=== PATIENT | male | born 1985 ===

== ENCOUNTER 2023-08-21 09:38 | Outpatient (AMB) | payer OTHER, SELFPAY ==
--- NOTE | 2023-08-21 09:51 | A.OFFPC_ITS ---
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 Intake Note: New patient visit, asthma [facility] Attendant Required: No Allergies No Known Allergies Allergy (Verified 08/21/23 09:50) Tobacco use date assessed: 08/21/23 Dental Screening Dental Screen Date: 08/21/23 Did you have a dental visit in the last 12 months?: No Did you have a dental problem in the last 6 months where you did not have access to dental care?: No Was dental information given to patient?: Patient declined HPI 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 Dad: [place], CAD, CVA. mGM: Alzheimers. SocHx: Smoked x a couple years in his twenties. EtOH: 1-2 dr a week. 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 1. Little interest or pleasure in doing things: not at all 2. Feeling down, depressed, or hopeless: not at all 3. Trouble falling or staying asleep, or sleeping too much: more than half the days 4. Feeling tired or having little energy: several days 5. Poor appetite or overeating: not at all 6. Feeling bad about yourself - or that you are a failure or have let yourself or your family down: not at all 7. Trouble concentrating on things, such as reading the newspaper or watching television: not at all 8. Moving or speaking so slowly that other people could have noticed. Or the opposite - being so fidgety or restless that you have been moving around a lot more than usual: not at all 9. Thoughts that you would be better off or of hurting yourself in some way: not at all Total score: 3 Depression Screening Interpretation: Negative Depression Screening Done: Yes 35583 - PHQ-9 Billing: Yes Source: Developed by Drs. Jose A Pérez, Caitlyn Hendrix, Haile Zaidi and colleagues, with an educational jannet from [employer]. Thrive Questionnaire Date Thrive assessed: 08/21/23 What is your living situation today?: I have a steady place to live Within the past 12 months, did the food you bought not last and you didn't have the money to get more?: Never true Within the past 12 months, did you worry whether your food would run out before you got money to buy more?: Never true Do you have trouble paying for medicines?: No Do you have trouble getting transportation to medical appointments?: No Do you have trouble paying your heating and electricity bill?: No Do you have trouble taking care of your child, family member or friend?: No Do you have trouble with day-to-day activities such as bathing, preparing meals, shopping, managing finances, etc.?: No Are you currently unemployed and looking for a job?: No Are you interested in more education?: No Please select the resources that you would like help with: None Currently or been in a relationship where the following occur: no concerns reported THRIVE Score: 0 AUDIT C Alcohol Use Questionnaire (AUDIT-C) 1. How often do you have a drink containing alcohol?: 2-3 times a week 2. How many drinks containing alcohol do you have on a typical day when you are drinking?: 1 or 2 3. How often do you have six or more drinks on one occasion?: Never Total Score: 3 CHEN-7 AMB Questionnaire CHEN-7 Date CHEN - 7 assessed: 08/21/23 Feeling nervous, anxious, or on edge: 0 = Not at all Not being able to stop or control worryin = Not at all Worrying too much about different things: 0 = Not at all Trouble relaxin = Not at all Being so restless that it is hard to sit still: 0 = Not at all Becoming easily annoyed or irritable: 0 = Not at all Feeling afraid as if something awful might happen: 0 = Not at all Total CHEN-7 score (0-4 normal; 5-9 mild; 10-14 moderate; 15-21 severe): 0 Source: Developed by Drs. Jose A Pérez, Caitlyn Hendrix, Haile Zaidi and colleagues, with an educational jannet from [employer]. CHEN-7 Assessment Billing CHEN-7 Assessment Tool: CHEN-7 Assessment 81503 ACT Questionnaire In the past 4 weeks, how much of the time did your asthma keep you from getting as much done at work, school or at home?: A little of the time During the past 4 weeks, how often have you had shortness of breath?: 3-6 times a week During the past 4 weeks, how often did your asthma symptoms wake you up at night or earlier than usual in the morning?: Not at all During the past 4 weeks, how often have you had to use your rescue inhaler or nebulizer medication?: Not at all How would you rate your asthma control during the past 4 weeks?: Completely controlled ACT Interpretation: Positive Score: 22 Review of Systems Const Denies chills, Denies fatigue, Denies fever(s), Denies headache(s) and Denies weakness ENT Denies dizziness and Denies headache(s) Card Denies chest pain, Denies lightheadedness, Denies dyspnea and Denies other (Palpitations) Resp Denies cough, Denies dyspnea, Denies wheezing and Denies other ( shortness of breath) Musc Denies numbness and Denies tingling Neuro Denies dizziness, Denies headache(s), Denies numbness, Denies tingling, Denies paresthesias and Denies weakness Psych Denies anxiety and Denies depression Endo Denies fatigue Aller/Immun Denies wheezing Physical exam (Primary Care) Vital Signs: Last Vital Signs Temp 97.9 F 08/21/23 10:05 Pulse 63 08/21/23 10:05 Resp 12 08/21/23 10:05 BP 128/80 08/21/23 10:05 Pulse Ox 98 08/21/23 10:05 Oxygen Delivery Method Room Air 08/21/23 10:05 BMI result Body Mass Index 31.7 Tobacco/Smoking Status: Tobacco use Status Tobacco use date assessed 08/21/23 08/21/23 10:20 Patient Tobacco Use Status Former Tobacco user 08/21/23 10:10 Tobacco use type Cigarette 08/21/23 10:20 e-Cigarette/Vaping Use Never Used 08/21/23 10:10 PHQ-9: PHQ-9 Score PHQ-9: Total score 3 08/21/23 10:32 Depression Screening Interpretation: Negative Thrive Assessment: Date of Thrive Assessment Date Thrive assessed 08/21/23 08/21/23 10:10 Currently or been in a relationship where the following occur: no concerns reported Const General: no acute distress and well developed Nutritional Appearance: well nourished Orientation/consciousness: patient oriented x3 HENMT Head: Yes normocephalic and Yes atraumatic Eyes General: appearance normal, both eyes and all related structures Pupils: Equal, round and reactive pupils present EOM: EOMs intact bilaterally Resp Effort & Inspection: normal respiratory effort Auscultation: clear to auscultation bilaterally Cardio Rate: regular rate Rhythm: regular rhythm Heart sounds: S1 normal heart sound present, S2 normal heart sound present, no gallops, no murmurs and no rubs Neuro General: patient oriented x3 and gait normal Cranial nerves: Yes Equal, round and reactive pupils present Psych Affect: normal affect Office Procedures EKG 35946-[id number], Complete Assessment and Plan Assessment & Plan (1) Shortness of breath: Code(s): R06.02 - Shortness of breath Plan: Shortness?of?breath?with?exercise?as?well?as?sometimes?while?sleeping Had?been?diagnosed?with?exercise-induced?asthma?in?the?past?bu t?he?notes?that?inhalers?never?helped?with?this?or?shortness?of?breath?in?genera l Denies?chest?pain EKG:??Shows?sinus?bradycardia,?normal?axis,?no?hypertrophy,?no?ST-T-wave?changes Will?check?a?chest?x-ray If?workup?is?unrevealing,?he?can?continue?exercise?and?weight?loss. If?still?having?shortness?of?breath,?would?get?PFTs (2) Difficulty sleeping: Code(s): G47.9 - Sleep disorder, unspecified Plan: Patient?awakens?short?of?breath?with?fast?heart?rate Concern?for?sleep?apnea?and?I?am?referring?him?to?Sleep?Medicine (3) Difficulty concentrating: Code(s): R41.840 - Attention and concentration deficit Plan: Patient?notes?history?of?ADHD?but?no?recent?history?of?any?control?medications?f or?this May?be?related?to?difficulty?sleeping?and?or?sleep?apnea (4) Laboratory exam ordered as part of routine general medical examination: Code(s): Z00.00 - Encounter for general adult medical examination without abnormal findi ngs Plan: Check?labs Orders: Orders Lipid Panel Today Z00.00 - Encounter for general adult medical examination without abnormal findings Microalbumin, Random (w Creat) Today I10 - Essential (primary) hypertension AMB EKG-In Office Today R06.02 - Shortness of breath XR chest 2V Today R06.02 - Shortness of breath Comprehensive [place]. Panel Fast Today Z00.00 - Encounter for general adult medical examination without abnormal findings TSH reflex Free T4 Today Z00.00 - Encounter for general adult medical examination without abnormal findings UA and rflx microscopic Today Z00.00 - Encounter for general adult medical examination without abnormal findings Referrals Sleep Medicine Referral G47.30 - Sleep apnea, unspecified Coding Level of Care Code New Pt Level 3 (21198) Diagnoses Shortness of breath R06.02 Difficulty sleeping G47.9 Difficulty concentrating R41.840 Laboratory exam ordered as part of routine general medical examination Z00.00 CPT Codes EKG - CPT: 02128-[id number], Complete ([id number]) Additional Codes CHEN-7 Assessment Billing - CHEN-7 Assessment Tool: CHEN-7 Assessment 89828 ([id number])
[2023-08-21 10:05] VITALS: BP 128/80; PULSE 63; RESP 12; TEMP 36.6; O2SAT 98; BMI 31.7
== END 2023-08-21 11:36 | disposition home or self-care (01) ==
PROVIDERS: PCP Family Medicine; Visit Provider Family Medicine
DX: R06.02 Shortness of breath (principal); G47.9 Sleep disorder, unspecified; R41.840 Attention and concentration deficit; Z00.00 Encounter for general adult medical examination without abnormal findings
CPT/HCPCS: 93000; 99203

== ENCOUNTER 2023-09-17 09:33 | Outpatient (REF) | payer OTHER, SELFPAY ==
[2023-09-17 11:30] LABS: Appearance Urine Clear; Color Urine Yellow; Glucose Urine UA Negative (Negative); Leukocyte Esterase Urine Negative (Negative); Nitrite Urine Negative (Negative); PH 7.5 (5.0-9.0); Urine Blood Negative (Negative); Urine Ketones Negative (Negative); Urine Protein Negative (Neg-Trace)
[2023-09-17 12:13] LABS: Creatinine Urine 169.07 mg/dL; Microalbum/Creatinine Ratio Ur 2.9 ug/mg cr (<30)
[2023-09-17 12:37] LABS: Alanine Aminotransferase 18 U/L (0-40); Albumin Level 4.3 g/dL (3.5-5.0); Alkaline Phosphatase 73 U/L (39-117); Anion Gap 9 (12-20); Aspartate Amino Transferase 19 U/L (5-37); Bilirubin Total 0.5 mg/dL (0.0-1.0); Blood Urea Nitrogen 14 mg/dL (9-16); Calcium 9.2 mg/dL (8.4-10.2); Carbon Dioxide 29 mmol/L (22-29); Chloride 106 mmol/L (96-108); Cholesterol 191 mg/dL (<200); Estimated Glomerular Filt Rate > 60; Glucose Fasting 88 mg/dL (60-99); HDL Cholesterol 42 mg/dL (>40); LDL Cholesterol Calculated 131 mg/dL (<100); Potassium 4.3 mmol/L (3.3-5.1); Sodium 140 mmol/L (135-145); Total Protein 7.6 g/dL (6.5-8.0); Triglycerides 92 mg/dL (<150)
[2023-09-17 12:40] LABS: TSH reflex Free T4 1.25 uIU/mL (0.32-4.0)
== END 2023-09-17 09:34 | disposition home or self-care (01) ==
LOC: HO.WFDLDS 09:33
PROVIDERS: Visit Provider Family Medicine
DX: Z00.00 Encounter for general adult medical examination without abnormal findings (principal); I10 Essential (primary) hypertension
CPT/HCPCS: 36415; 80053; 80061; 81003; 82043; 82570; 84443

== ENCOUNTER 2025-05-12 11:58 | Outpatient (AMB) | payer OTHER, SELFPAY ==
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
[2025-05-12 12:07] VITALS: BP 150/104; PULSE 78; RESP 16; TEMP 36.3; O2SAT 100; BMI 31.4
--- OUTSIDE RECORDS SUMMARY | 2025-05-12 15:53 | XMS_ITS ---
Author Name [facility] Organization Unknown Care Team Organization Name Specialty Phone Email Start Date End Da te [facility] 04/03/2022 01/13/2024
--- OUTSIDE RECORDS SUMMARY | 2025-05-12 15:53 | XMS_ITS | Clinical Summary ---
Author Organization [facility] Address [address] [address] Phone Care Team Providers Care Coiler Operator Name Role Phone Pcp, Unknown Primary Care Provider Unavailabl e Allergies No known active allergies Medications No known medications Immunizations Immunization Administration Dates Next Due INFLUENZA, SPLIT VIRUS, TRIVALENT W/ PRESERVATIV E IM 04/18/2015,07/11/2012 Pneumococcal polysaccharide PPSV23 04/18/2015 Tdap 11/19/2011 Social History Tobacco Use Types Packs/Day Years Used Date Smoking Tobacco: Never Smokeless Tobacco: Never Education Answer Date Recorded Are you interested in more education? Not on earnestine e 11/29/2023 Are you concerned about learning? Not on file 11/29/2023 No 11/29/2023 No 11/29/2023 Digital Access Answer Date Recorded No 11/29/2023 No 11/29/2023 Reliable internet access at home? Not on file 11/29/2023 Device with a working camera? Not on file Sex and Gender Information Value Date Recorded Sex Assigned at Not on file Legal Sex Male 10:56 AM EDT Gender Identity Not on file Sexual Orientation Not on file Last Filed Vital Signs Vital Sign Reading Time Taken Comments Blood Pressure 136/90 11/29/2023 11:23 AM EDT Pulse 63 11/29/2023 11:23 AM EDT Temperature 36.6 C (97.9 F) 11/29/2023 11:23 AM EDT Respiratory Rate 18 11/29/2023 11:23 AM EDT Oxygen Saturation 100% 11/29/2023 11:23 AM EDT Inhaled Oxygen Concentration - - Weight 97.1 kg (214 lb) 11/29/2023 11:23 AM EDT Height - - Body Mass Index - - Plan of Treatment Health Maintenance Due Date Last Done Comments LIPID PANEL 1985 DEPRESSION SCREENING 1997 HEPATITIS C SCREENING 12/07/2003 HIV ONE-TIME SCREENING (18-6 5 YEARS) 12/07/2003 Adult Td,Tdap Booster 11/18/2021 11/19/2011 INFLUENZA VACCINE (#1) 2024 5, 07/11/2012 COVID-19 VACCINE ( - 2024-2 6 season) 2025 PNEUMOCOCCAL VACCINES (0-49 years) Aged Out 04/18/2015 No longer eligible b ased on patient's age to complete this topic SMOKING STATUS SCREENING (On ce After 26 Yrs) Completed 11/29/2023 HEPATITIS A VACCINES Aged Out No long er eligible based on patient's age to complete this topic HIB VACCINES Aged Out No longer eligi ble based on patient's age to complete this topic MENINGOCOCCAL VACCINES (ACWY) Aged Out No longer eligible based on patient's age to complete this topic MENINGOCOCCAL VACCINES (B) Aged Out N o longer eligible based on patient's age to complete this topic Medical Devices Not on file Insurance [place] [address] [place], [place] [id number] [place], [place] [address]O [facility] [place] [place] [address] HMO Care Teams Coiler Operator Relationship Specialty Start Date End Date Pcp, Unknown PCP - General 11/29/23 Additional Source Comments The information contained in this document represents components of the legal health record. It is not the complete legal health record.[facility]
== END 2025-05-12 12:46 | disposition home or self-care (01) ==
LOC: HO.HMCFM 11:59
PROVIDERS: PCP Family Medicine; Visit Provider Family Medicine
DX: Z00.00 Encounter for general adult medical examination without abnormal findings (principal); I10 Essential (primary) hypertension; F41.8 Other specified anxiety disorders

== ENCOUNTER → 2025-05-12 11:58 | Outpatient (BNVA) | payer OTHER, SELFPAY | PROVIDERS: PCP Family Medicine; Visit Provider Family Medicine | DX: Z00.00 Encounter for general adult medical examination without abnormal findings (principal); F41.8 Other specified anxiety disorders; I10 Essential (primary) hypertension | CPT/HCPCS: 96127 ==

== ENCOUNTER 2025-05-13 09:16 | Outpatient (REF) | payer OTHER, SELFPAY ==
--- OUTSIDE RECORDS SUMMARY | 2025-05-13 10:33 | XMS_ITS | Clinical Summary ---
Author Organization [facility] Address [address] [address] Phone Care Team Providers Care Cargo Service Supervisor Name Role Phone Pcp, Unknown Primary Care [...] Medical Devices Not on file Insurance [address] [place], [place] [id number] [place], [place] [address]O [facility] [place] [place] [address] HMO Care Teams Cargo Service Supervisor Relationship Specialty Start Date End Date Pcp, Unknown PCP - General 11/29/23 Additional Source Comments The information contained in this document represents components of the legal health record. It is not the complete legal health record.[facility]
[2025-05-13 11:01] LABS: MANUAL DIFF FLAG NO
[2025-05-13 11:31] LABS: Hematocrit 42.6 % (42.0-52.0); Hemoglobin 13.9 g/dl (14.0-18.0); Imm Gran Abs Auto 0.02 X10*3/uL (0.00-0.03); Imm Gran Pct Auto 0.3 % (0.0-0.4); Lymphocytes Absolute Auto 2.0 X10*3/uL (1.2-4.9); Mean Corpuscular HGB Conc 32.6 g/dl (31.0-36.0); Mean Corpuscular Hemoglobin 28.1 pg (27.0-33.0); Mean Corpuscular Volume 86.2 fL (80.0-98.0); NRBC Abs Auto 0.000 X10*3/uL (0.0-0.012); NRBC Pct Auto 0.0 /100WBC (0.0-0.2); Platelet Count 127 X10*3/uL (160-400); Red Blood Count 4.94 X10*6/uL (4.60-5.80); White Blood Count 6.4 X10*3/uL (4.8-10.8)
[2025-05-13 12:09] LABS: Alanine Aminotransferase 19 U/L (0-40); Albumin Level 4.4 g/dL (3.5-5.0); Alkaline Phosphatase 63 U/L (39-117); Anion Gap 9 (12-20); Aspartate Amino Transferase 24 U/L (5-37); Blood Urea Nitrogen 17 mg/dL (9-16); Calcium 8.8 mg/dL (8.4-10.2); Carbon Dioxide 25 mmol/L (22-29); Chloride 108 mmol/L (96-108); Cholesterol 175 mg/dL (<200); Estimated Glomerular Filt Rate > 60; HDL Cholesterol 43 mg/dL (>40); Potassium 4.0 mmol/L (3.3-5.1); Sodium 138 mmol/L (135-145); Total Protein 7.3 g/dL (6.5-8.0); Triglycerides 73 mg/dL (<150)
[2025-05-13 15:15] LABS: Appearance Urine Clear; Glucose Urine UA Negative (Negative); PH 6.0 (5.0-9.0); Specific Gravity - Urine 1.020 (1.005-1.025)
[2025-05-13 15:46] LABS: Microalbum/Creatinine Ratio Ur 6.1 ug/mg cr (<30)
== END 2025-05-13 09:17 | disposition home or self-care (01) ==
LOC: HO.WFDLDS 09:16
PROVIDERS: Visit Provider Family Medicine
DX: Z00.00 Encounter for general adult medical examination without abnormal findings (principal); I10 Essential (primary) hypertension
CPT/HCPCS: 36415; 80053; 80061; 81003; 82043; 82570; 84443; 85025